=== PATIENT | female | born 1985 | race Two or more races ===

== ENCOUNTER 2024-11-03 22:19 | Emergency (ER) | payer MEDICAID, SELFPAY ==
[2024-11-03 22:20] VITALS: BMI 22.8
--- NOTE | 2024-11-03 22:22 | EKG_ITS ---
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
[2024-11-03 22:25] VITALS: BP 127/87; PULSE 92; RESP 18; TEMP 36.7; O2SAT 98
[2024-11-03] MEDS: DIAZEPAM 5 MG TABLET 10 MG PO (22:58)
--- NOTE | 2024-11-04 00:59 | PC.NURSE ---
CALLED PATIENT IN THE LOBBY AND OUTSIDE, NO ANSWER RECEIVED.
--- NOTE | 2024-11-04 01:05 | PC.NURSE ---
NO ANSWER AT ER LOBBY OR OUTSIDE ER.
--- NOTE | 2024-11-04 01:15 | PC.NURSE ---
NO ANSWER AT ER LOBBY OR OUTSIDE ER TO BE RE EVALUATED.
--- NOTE | 2024-11-04 01:28 | PD.EDRME ---
Rapid Medical Screening Exam RME Arrival date/time: 11/03/24 22:19 39F with history of anxiety presents to ED with several hours of CP, SOB, and heart palps. Chief Complaint: Chest Pain Time Seen by Provider: 11/03/24 22:43 Vital signs: Vital Signs Temperature 98.1 F 11/03/24 22:25 Pulse Rate 92 11/03/24 22:25 Respiratory Rate 18 11/03/24 22:25 Blood Pressure 127/87 H 11/03/24 22:25 Pulse Oximetry (%) 98 11/03/24 22:25 Oxygen Delivery Method Room Air 11/03/24 22:25
== END 2024-11-04 01:16 | disposition left against medical advice (07) ==
LOC: SERX 11-04 01:25
PROVIDERS: Emergency Provider Emergency Medicine
DX: R07.9 Chest pain, unspecified (principal); R06.02 Shortness of breath; R00.2 Palpitations; Z53.29 Procedure and treatment not carried out because of patient's decision for other reasons
CPT/HCPCS: 93005; 99283; A9270